=== PATIENT | female | born 1995 | race African-American/Black ===

== ENCOUNTER 2020-07-21 23:42 | Emergency (ER) | payer MEDICAID ==
[~2020-07-21] VITALS: Ht 162.6 cm; Wt 68.9 kg
[2020-07-21 23:53] VITALS: BP 125/77
[2020-07-22] MEDS ORDERED: KETOROLAC TROMETH 60MG/2ML VIAL IM ONE (02:00)
== END 2020-07-22 02:29 | disposition home or self-care (01) ==
LOC: ER 23:45
DX: J02.9 Acute pharyngitis, unspecified (principal); J45.909 Unspecified asthma, uncomplicated; F41.9 Anxiety disorder, unspecified; F32.9 Major depressive disorder, single episode, unspecified
CPT/HCPCS: 87070; 87804; 87880; 96372; 99283; J1885